=== PATIENT | female | born 1960 | race African-American/Black ===

== ENCOUNTER 2023-08-19 12:31 | Outpatient (CLI) | payer MEDICAID ==
[~2023-08-19 12:31] MED LIST: MULT-1085 PO
[2023-09-01] MEDS ORDERED: SIMV-45 PO (13:58)
[2023-09-01] MEDS ORDERED: CELE-148 PO (13:58)
[2023-09-01] MEDS ORDERED: HYDR-3973 PO (13:58)
[2023-09-01] MEDS ORDERED: DOXE25CA3 PO (13:58)
[2023-09-01] MEDS ORDERED: DOXE50CA4 PO (13:58)
[2023-09-01] MEDS ORDERED: POTA-206 PO (13:58)
[2023-09-01] MEDS ORDERED: NAPR-56 PO (13:58)
[2023-09-01] MEDS ORDERED: LISI10TA27 PO (13:58)
== END 2023-08-19 23:59 | disposition home or self-care (01) ==
LOC: RAD 12:31
PROVIDERS: ATTEND Orthopaedic Surgery
DX: S52.501D Unspecified fracture of the lower end of right radius, subsequent encounter for closed fracture with routine healing (principal); X58.XXXD Exposure to other specified factors, subsequent encounter
CPT/HCPCS: 73110

== ENCOUNTER 2023-09-02 05:33 | Day surgery (SDC) | payer MEDICAID ==
[2023-09-01 13:46] LABS: ALKALINE PHOSPHATASE 140 IU/L (46-116); BLOOD UREA NITROGEN 12 MG/DL (7-18); BUN/CREATININE RATIO 14.1 (10.0-20.0); CALCIUM 10.3 MG/DL (8.5-10.1); CHLORIDE 108 MMOL/L (99-107); CREATININE 0.85 MG/DL (0.40-0.90); PRE OP ALT 12 U/L (30-65); PRE OP ANION GAP 11 (8-16); PRE OP AST 13 U/L (10-37); PRE OP BILIRUB, TOTAL 0.4 MG/DL (0.0-1.0); PRE OP GLUCOSE 79 MG/DL (70-104); PRE OP SODIUM 143 MMOL/L (135-145); TOTAL CARBON DIOXIDE 24.2 MMOL/L (24-32); TOTAL PROTEIN 8.2 G/DL (6.4-8.2); eGFR 82 ML/MIN
[2023-09-01 13:49] LABS: BASOPHILS % (AUTO) 0.7 % (0-1); EOSINOPHILS # (AUTO) 0.2 X10'3 (0-0.9); EOSINOPHILS % (AUTO) 3.1 % (0-6); LYMPHOCYTES # (AUTO) 2.3 X10'3 (1.1-4.8); LYMPHOCYTES % (AUTO) 41.9 % (21-51); MEAN CORPUSCULAR HEMOGLOBIN 27.1 PG (27.0-31.0); MEAN CORPUSCULAR HGB CONC 31.8 g/dL (33.0-36.5); MEAN CORPUSCULAR VOLUME 85.3 FL (78-98); MONOCYTES # (AUTO) 0.5 X10'3 (0-0.9); MONOCYTES % (AUTO) 8.4 % (2-12); NEUTROPHILS # (AUTO) 2.5 X10'3 (1.8-7.7); NEUTROPHILS % (AUTO) 45.9 % (42-75); PRE OP HEMATOCRIT 42.3 % (35.0-45.0); PRE OP HEMOGLOBIN 13.4 g/dL (12.0-16.0); PRE OP PLATELET COUNT 233 X10'3 (140-440); PRE OP WHITE BLOOD COUNT 5.4 10'3 (4.8-10.8); RED BLOOD COUNT 4.95 X10'6 (4.20-5.60); RED CELL DISTRIBUTION WIDTH 16.4 % (11.5-14.5)
[~2023-09-02] VITALS: Ht 180.3 cm; Wt 123.0 kg
[2023-09-02 05:30] VITALS: BP 160/84; PULSE 83; RESP 16; TEMP 97.2; O2SAT 97
[~2023-09-02 05:33] MED LIST changes: +CELE-148 PO; +DOXE25CA3 PO; +DOXE50CA4 PO; +HYDR-3973 PO; +LISI10TA27 PO; -MULT-1085 PO; +NAPR-56 PO; +POTA-206 PO; +SIMV-45 PO
[2023-09-02] MEDS: famotidine 20mg tablet PO ONE (06:07)
[2023-09-02] MEDS: ringers solution, lacted 1,000 ML IV SCH (06:07)
[2023-09-02] MEDS: cefazolin 2gm/D5W 100mL 100 ML IV ONE (06:08)
[2023-09-02] MEDS ORDERED: vancomycin 1,000mg inj ONE (06:59)
[2023-09-02] MEDS ORDERED: bacitracin 15gm ointment TP ONE (06:59)
[2023-09-02] MEDS ORDERED: BUPIVAcaine/PF 2.5mg/ml (0.25%) 10ml vial ONE (06:59)
[2023-09-02] MEDS ORDERED: cloNIDine hcl/PF 100mcg/ml inj ONE (07:29)
[2023-09-02] MEDS ORDERED: midazolam 1 mg/ML 2ml injection ONE (07:33)
[2023-09-02] MEDS ORDERED: fentaNYL/PF 50MCG/1 ML 2ML syringe ONE (07:33)
[2023-09-02] MEDS ORDERED: sevoflurane 250ml liquid IH ONE (07:45)
[2023-09-02] MEDS ORDERED: morphine 2 MG/ML inj. syringe IV PRN (07:50)
[2023-09-02] MEDS ORDERED: ondansetron/PF 4mg/2ml inj IV PRN (07:50)
[2023-09-02] MEDS ORDERED: ringers solution, lacted 1,000 ML IV SCH (07:50)
[2023-09-02] MEDS ORDERED: acetaminophen 1,000mg/100ml IV 100 ML IV ONE (07:50)
[2023-09-02] MEDS ORDERED: morphine 4 MG/ML inj SYRINge IV PRN (07:50)
[2023-09-02] MEDS ORDERED: hydrALAZINE 20mg/ml inj. IV PRN (07:50)
[2023-09-02] MEDS ORDERED: meperidine/PF 25mg/ml syringe IV PRN ×3 (07:50)
[2023-09-02] MEDS ORDERED: labetalol 20mg/4ml (5mg/ml) syringe IV PRN (07:50)
[2023-09-02] MEDS ORDERED: proCHLORperazine 10 MG/2 ml inj IV PRN (07:50)
[2023-09-02] MEDS ORDERED: ROPIVAcaine 0.5% (5mg/ml) 30ml vial ONE (08:43)
[2023-09-02] MEDS ORDERED: propofol inj 20 ML IV ONE (08:43)
[2023-09-02] MEDS ORDERED: LIDOcaine 2% (20mg/ml) 5ml vial ONE (08:43)
[2023-09-02] MEDS ORDERED: ondansetron/PF 4mg/2ml inj ONE (08:44)
[2023-09-02] MEDS ORDERED: dexamethasone sod phosphate 4mg/ml inj. ONE (08:44)
[2023-09-02] MEDS: vancomycin 1,000mg inj IVT ONE (10:25)
[2023-09-02] MEDS ORDERED: ceFAZolin 1000mg inj ONE (10:37)
[2023-09-02 11:00] VITALS: BP 148/91; PULSE 80; RESP 14; O2SAT 99
[2023-09-02 11:10] VITALS: BP 141/91; PULSE 82; RESP 21; O2SAT 96
[2023-09-02 11:20] VITALS: BP 142/86; PULSE 87; RESP 24; O2SAT 94
[2023-09-02 11:30] VITALS: BP 151/73; PULSE 84; RESP 18; O2SAT 96
== END 2023-09-02 11:40 | disposition home or self-care (01) ==
LOC: PAS 05:33
PROVIDERS: ATTEND Orthopaedic Surgery
DX: S52.571A Other intraarticular fracture of lower end of right radius, initial encounter for closed fracture (principal); G89.18 Other acute postprocedural pain; I11.9 Hypertensive heart disease without heart failure; E78.5 Hyperlipidemia, unspecified; E66.9 Obesity, unspecified; Z87.891 Personal history of nicotine dependence; Z79.891 Long term (current) use of opiate analgesic; Z79.899 Other long term (current) drug therapy; Z98.890 Other specified postprocedural states; Z68.37 Body mass index [BMI] 37.0-37.9, adult; Z88.5 Allergy status to narcotic agent; X58.XXXA Exposure to other specified factors, initial encounter; Y93.89 Activity, other specified; Y92.89 Other specified places as the place of occurrence of the external cause; Y99.8 Other external cause status
CPT/HCPCS: 25608; 36415; 64417; 80053; 82948; 85025; 93005; A6222; C1713; J0690; J0735; J1100; J2250; J2405; J2704; J2795; J3010; J3370; J3490; J7030; J7120; Z7506; Z7508; Z7512; A4215; A4565; A4618; A6258; A6449; A7000

== ENCOUNTER 2024-09-26 06:34 | Inpatient (IN) | payer MEDICAID ==
[2024-09-19 10:49] LABS: BASOPHILS % (AUTO) 1.1 % (0-1); EOSINOPHILS # (AUTO) 0.1 X10'3 (0-0.9); EOSINOPHILS % (AUTO) 2.1 % (0-6); LYMPHOCYTES # (AUTO) 1.5 X10'3 (1.1-4.8); LYMPHOCYTES % (AUTO) 36.4 % (21-51); MEAN CORPUSCULAR HEMOGLOBIN 27.3 PG (27.0-31.0); MEAN CORPUSCULAR HGB CONC 32.6 g/dL (33.0-36.5); MEAN CORPUSCULAR VOLUME 83.9 FL (78-98); MONOCYTES # (AUTO) 0.3 X10'3 (0-0.9); MONOCYTES % (AUTO) 6.9 % (2-12); NEUTROPHILS # (AUTO) 2.1 X10'3 (1.8-7.7); NEUTROPHILS % (AUTO) 53.5 % (42-75); PRE OP HEMATOCRIT 41.1 % (35.0-45.0); PRE OP HEMOGLOBIN 13.4 g/dL (12.0-16.0); PRE OP PLATELET COUNT 215 X10'3 (140-440); RED CELL DISTRIBUTION WIDTH 16.3 % (11.5-14.5)
[2024-09-19 11:00] LABS: ALBUMIN 3.8 G/DL (3.4-5.0); ALKALINE PHOSPHATASE 143 IU/L (46-116); BLOOD UREA NITROGEN 10 MG/DL (7-18); BUN/CREATININE RATIO 13.3 (10.0-20.0); CHLORIDE 107 MMOL/L (99-107); CREATININE 0.75 MG/DL (0.40-0.90); PRE OP ALT 23 U/L (30-65); PRE OP ANION GAP 8 (8-16); PRE OP AST 14 U/L (10-37); PRE OP BILIRUB, TOTAL 0.3 MG/DL (0.0-1.0); PRE OP GLUCOSE 85 MG/DL (70-104); PRE OP POTASSIUM 3.9 MMOL/L (3.4-5.1); PRE OP SODIUM 143 MMOL/L (135-145); TOTAL CARBON DIOXIDE 28.4 MMOL/L (24-32); eGFR > 90 ML/MIN
[2024-09-19 11:03] LABS: TOTAL PROTEIN 7.5 G/DL (6.4-8.2)
[~2024-09-26] VITALS: Ht 175.3 cm; Wt 115.8 kg
[2024-09-26] VITALS (18 sets, daily range): BP systolic 77–169; BP diastolic 45–98; PULSE 59–90; RESP 12–18; TEMP 97–98.2; O2SAT 94–100
[2024-09-26] MEDS: tranexamic acid 1gm/0.7% sal. 100 ML IV ONE (05:30)
[2024-09-26] MEDS: ceFAZolin 2gm/dext,iso 50mL 50 ML IV ONE (06:12)
[~2024-09-26 06:34] MED LIST changes: +ACET-2615 PO; +BACL20TA4 PO; -DOXE25CA3 PO; +DOXE25CA4 PO; -DOXE50CA4 PO; +GABA-1405 PO; -HYDR-3973 PO; +IBUP-1986 PO; -NAPR-56 PO; +OXYB5TAB21 PO; +SEMA0.253 SQ; +vancomycin 1,000mg inj ONE
[2024-09-26] MEDS: ringers solution, lacted 1,000 ML IV SCH ×2 (07:03→09:30)
[2024-09-26] MEDS: famotidine 20mg tablet PO ONE (07:04)
[2024-09-26] MEDS: VANCOMYCIN/H2O 1.5g/300mL PB 300 ML IV ONE (07:06)
[2024-09-26] MEDS ORDERED: tetracaine 1% (10mg/ml) pres. free inj. ONE (08:12)
[2024-09-26] MEDS ORDERED: fentaNYL/PF 50MCG/1 ML 2ML syringe ONE ×2 (08:16→11:19)
[2024-09-26] MEDS ORDERED: MIDAZolam 1mg/ml 10ml vial ONE (08:16)
[2024-09-26] MEDS ORDERED: LIDOcaine 2% (20mg/ml) 5ml vial ONE (09:00)
[2024-09-26] MEDS ORDERED: LIDOcaine 1%/PF 5ML 10 MG/ML VIAL ONE (09:00)
[2024-09-26] MEDS ORDERED: fentaNYL /PF 50mcg/ml 5ml ampule ONE (09:00)
[2024-09-26] MEDS ORDERED: acetaminophen 1,000mg/100ml IV 100 ML IV ONE (09:03)
[2024-09-26] MEDS ORDERED: sevoflurane 250ml liquid IH ONE (09:19)
[2024-09-26] MEDS ORDERED: dexamethasone sod phosphate 4mg/ml inj. ONE (09:21)
[2024-09-26] MEDS ORDERED: ondansetron/PF 4mg/2ml inj ONE (09:21)
[2024-09-26] MEDS ORDERED: labetalol 20mg/4ml (5mg/ml) syringe IV PRN (09:30)
[2024-09-26] MEDS ORDERED: ondansetron/PF 4mg/2ml inj IV PRN ×2 (09:30→12:20)
[2024-09-26] MEDS ORDERED: fentaNYL/PF 50MCG/1 ML 2ML syringe IV PRN (09:30)
[2024-09-26] MEDS ORDERED: hydrALAZINE 20mg/ml inj. IV PRN (09:30)
[2024-09-26] MEDS ORDERED: labetalol 20mg/4ml (5mg/ml) syringe IV ONE (09:43)
--- NOTE | 2024-09-26 09:43 | ANESTHESIA RECORDS ---
Nerve Block Providers to CC CC: RODOLFO BAILON MD ~ Diagnosis: Nerve Block requested by: RODOLFO BAILON MD Neuraxial/Peripheral Nerve Block requested for Post-operative analgesia by Physician above DIAGNOSIS: Post-operative pain. (Body Area) Shoulder: [ ] Arm: [ ] Hand: [ ] Hip: [ ] Knee: [ Right ] Ankle: [ ] Foot: [ ] Leg: [ ] Abdomen: [ ] Other: [ ] Post-operative pain expected to be/is inadequately managed by oral or IV medicines. Regional anesthetic expected to facilitate rehabilitation and/or discharge from facility. Other:[ _] Procedure Performed: Femoral / Saphenous: Right Other: Right IPACK Block Time out Done?: Yes Time of Time out: 08:35 Procedure Details: PROCEDURE DETAILS: Risks, benefits and alternatives explained Informed consent obtained, and patient wishes to proceed Conscious sedation with indicated monitors Patient positioned, pertinent anatomy defined, sterile technique used Needle used: [ ] 3 1/8 inch Stimuplex Ultra 22ga [ ] 4 inch Stimuplex Ultra 20ga [ ] 6 inch Stimuplex Ultra 20ga [ X] 6 inch, Quikbloc over the needle catheter set 20ga [ ] 4 inch Quikbloc over the needle catheter set 20ga [ ]Other: [ ] Loss of twitch @ [ ]mA [ X] Single Injection IPACK [X ] Catheter ADDUCTOR CANAL Ultrasound Guidance Used: [X ] Yes [ ] No Attempts:[_1,1 ] Medicines injected: [ ]Clonidine Amt:[ ] [ X ]Dexamethasone Amt:[ ] [ X ]Ropivacaine Amt:[_0.5% 45 C.C ] [ ]Bupivacaine Amt:[ ] [ ]Lidocaine Amt:[ ] [ ]Exparel 1.33%:[ ] [ ]Epinephrine Amt[ ] [ ]Other: [ ] Intermittent aspiration during local anesthetic administration No symptoms of intraneural or intravenous injection Patient tolerated procedure well Comments RIGHT ADDUCTOR CANAL BLOCK CATHETER: Right mid medila thigh is examined with Ultrasound and Adductor canal and vessels in the canal are identified. Catheter over needle is paced in the adductor canal. After negative aspirations, 25 c.c local mix is injected.spread is noted. Needle is removed,catheter is secured. sterile dressings applied. Ultrasound image is captured,documented. On q pump is ordered for postop pain management. Right IPACK Block: Right posterior knee is examined with Ultrasound and Popliteal vessels, Posterior knee capsule is identified. Needle is placed between these structures and 15 c.c of local mix is injected,spread is noted. Ultrasound image is captured and documented. ELLEN LEVY MD September 26, 2024 09:43
[2024-09-26] MEDS ORDERED: rocuronium 10mg/ml inj IV ONE (10:29)
[2024-09-26] MEDS ORDERED: ROPIVAcaine 0.5% (5mg/ml) 30ml vial ONE ×2 (11:22)
[2024-09-26] MEDS ORDERED: acetaminophen 325mg tablet PO PRN (12:20)
[2024-09-26] MEDS ORDERED: magnesium hydroxide 30ml (MOM) UD suspension PO PRN (12:20)
[2024-09-26] MEDS ORDERED: PCA WASTE DOCUMENTATION 1 MG ML MC SCH (12:20)
[2024-09-26] MEDS ORDERED: diphenhydrAMINE 25mg capsule PO PRN ×2 (12:20)
[2024-09-26] MEDS ORDERED: naloxone 0.4 mg/ml inj IV PRN (12:20)
[2024-09-26] MEDS ORDERED: HYDROmorphone 1 mg/ml syringe IV PRN (12:20)
[2024-09-26] MEDS ORDERED: bisacodyl 10mg suppository rectal RC PRN (12:20)
--- NOTE | 2024-09-26 12:34 | OPERATIVE REPORT ---
Operative Report Providers to ~ Date of Procedure: September 26, 2024 Pre-Operative Diagnosis: Severe degenerative joint right knee Post-Operative Diagnosis SAME as PRE-Op Procedure Performed Right total knee arthroplasty cemented Surgeon: Rodolfo Epstein MD Advisory Services Associate Osman Sanches MD Anesthesiologist: Wilton Valera Type of Anesthesia: General, Other (Adductor canal block with on Q pump and an IPAP block right knee) Findings: Severe grade 4 degenerative changes tricompartmental right knee Complications None Prosthetics\Implants used: Darren persona knee system. Size F tibial cemented implant tibia with a 30 mm tapered stem extension. Size 11 standard femur cemented. Size 35 mm patella cemented. Medial congruent 11 mm polyethylene Estimated Blood Loss: 250 mL Specimen Removed: Degenerative bone, meniscal, and cruciate tissue Description of Procedure: This patient was taken to the operating room after I had obtained informed consent signed in her right knee she was then given prophylactic antibiotics per protocol. I answered all her questions prior to the beginning of the case. Once in the operating room she was given attempted spinal anesthetic patient was unable to be completed and then a general anesthetic on the OR table in the supine position. Her left leg was placed with a SCD device her right leg was placed in a well- padded upper thigh tourniquet which was not used during this case. The right leg was prepped and draped in usual sterile orthopaedic fashion a surgical time- out was taken per protocol and the case was begun. Ioban skin dressing was used. Anterior incision was made measuring approximately 10 in in the medial parapatellar approach was accomplished using strict technique for hemostasis. The patella was inverted and found to have extensive grade 4 degenerative changes. Osteotomy of the patella was accomplished with a freehand technique this sized to a 35 mm it was drilled in prep for implantation and protected with a skin plate. This was subluxed laterally to expose the distal femur. The knee was brought into flexion to expose the femoral condyles which had grade 4 changes. Patient had a moderate valgus malalignment. Medullary canal was established with a drill hole and then a medullary guide dipak was used a 6 degree valgus cut was made removing both medial and lateral femoral condyles. Proximal tibia was now exposed by placed in the knee and a maximal flexion releasing the cruciate ligament and doing a meniscectomy. Medial collateral ligament was released distally due to the varus deformity of her knee. Medullary canal was established with the tibia and a guide dipak was placed down the medullary canal and used for alignment purposes approximately 10-12 mm tibial cut osteotomy was now made protecting the neurovascular structures posteriorly with retractors. Trial reduction gave us full extension with a 11 mm insert tension with a gap balance her was equal with positioning of the femor al component 4 mm posteriorly this required sizing her implant from a size 10 to a size 11 which accommodated quite nicely. Trial liner was used a size 11 gave us excellent stability with full extension instability and flexion as well. The patella trial was placed in the knee and was tracked centrally throughout the range of motion. The trial components were removed bony cut surfaces were irrigated and dried fixation of the tibial component with cement was accomplished 1st allowing to a cure prior to fixation of the femoral and patellar components. Another trial reduction with the liner 11 mm was satisfactory and quite stable so the definitive polyethylene liner 11 mm medial congruent was placed in the knee is stable. Copious antibiotic irrigation with pulsatile normal saline with Ancef and it was used with a proximally 4 L and 1 L of antiseptic solution was used Aricept. Hemostasis was excellent. Medial parapatellar approach was closed with the knee in flexion with interrupted sutures of 2. FiberWire. Subcutaneous closure was accomplished with 2-0 Vicryl and the skin was closed with skin yissel. Sterile dressings were applied including active code and island dressing. The anesthesiologist performed a adductor canal block and an IPAP block after this was completed. Good distal pulses capillary refill maintained throughout the case. There were no apparent perioperative complications patient was extubated taken to the recovery room in stable condition Counts repoted as correct: Yes RODOLFO EPSTEIN MD September 26, 2024 12:34
[2024-09-26] MEDS: morphine 4 MG/ML inj SYRINge IV PRN (12:59)
[2024-09-26] MEDS: ROPIVAcaine 0.2% (10 MG/5 ML) BOLUS INJECTION ADDCANAL PRN (13:00)
[2024-09-26] MEDS: gabapentin 300mg capsule PO SCH (13:00)
[2024-09-26] MEDS: ROPIVAcaine 0.2%/PF PUMP/bolus 545 ML ADDCANAL SCH (13:02)
[2024-09-26] MEDS: morphine 2 MG/ML inj. syringe IV PRN (13:09)
[2024-09-26] MEDS: fentaNYL/PF 50MCG/1 ML 2ML syringe IV PRN (13:16)
[2024-09-26] MEDS: acetaminophen 325mg tablet PO SCH (14:00)
--- NOTE | 2024-09-26 14:35 | RADIOLOGY REPORT ---
CLINICAL INDICATION: Postop RT. KNEE TECHNIQUE: 2 radiographic views of the right knee were obtained. Comparison: None FINDINGS/IMPRESSION: Postsurgical changes from right knee arthroplasty.
[2024-09-26] MEDS: oxyCODONE IR 5mg (immed. release) tablet PO PRN (17:18)
[2024-09-26] MEDS: tranexamic acid inj. 1,150 MG in normal saline 100ml IV soln 88.5 ML IV ONE (19:40)
[2024-09-26] MEDS: sennosides 8.6mg tablet PO SCH (19:41)
[2024-09-26] MEDS: ceFAZolin/D5W- 1GM premix 50 ML IV SCH (20:33)
[2024-09-26] MEDS: potassium Cl 20mEq in NS 1,000 ML IV SCH (21:18)
[2024-09-26] MEDS: vancomycin/NS 1 GM ADD-VANTAGE 250 ML IV SCH (21:21)
--- NOTE | 2024-09-27 00:02 | CONSULTATION REPORT - RESIDENT ---
Consult Providers to CC Resident Creating Document: ANDREW LLAMAS RES History of Present Illness Reason for Admit\Complaint: RIGHT TKA History of Present Illness 64-year-old female past medical history of hypertension, osteoarthritis, hypokalemia, chronic back pain has been admitted in the hospital after she underwent right total knee arthroplasty today by Dr. Epstein for severe degenerative joint disease of the right knee. The patient successfully underwent the right total knee arthroplasty without any complications. Reported that she did not take her blood pressure medications prior to the surgery today. She also reports having history of chronic pain in her back and peripheral neuropathy but states that her pain is currently well-controlled with the pain medication she has been receiving. She is resting comfortably in her bed and denies any headaches, nausea or vomiting, chest pain, palpitations, abdominal pain, diarrhea or constipation. Allergies: Coded Allergies: codeine (Unverified Allergy, Intermediate, NAUSEA/VOMITING, SWELLING., 10/09/13) Home Medications Home Medications Active Reported Doxepin HCl 25 Mg Capsule 125 Mg PO HS 30 Days Tylenol Extra Strength (Acetaminophen) 500 Mg Tablet 2 Tab PO Q6H PRN PRN Ibuprofen 800 Mg Tablet 1 Tab PO Q8H PRN Gabapentin 600 Mg Tablet 900 Mg PO HS Gabapentin 600 Mg Tablet 1 Tab PO BID@0800,1200 Baclofen 20 Mg Tablet 1 Tab PO BID PRN Oxybutynin Chloride 5 Mg Tablet 2 Tab PO HS Wegovy (Semaglutide) 0.25 Mg/0.5 Ml Pen.injctr 1.7 Mg SQ Q7D Simvastatin 40 Mg Tablet 1 Tab PO HS Lisinopril 10 Mg Tablet 2 Tab PO DAILY K-Dur (Potassium Chloride) 10 Meq Tab.prt.sr 1 Tab PO DAILY Celecoxib 100 Mg Capsule 1 Cap PO BID PRN Past Medical History Past Medical History Hypertension, osteoarthritis, hypokalemia, chronic pain syndrome, peripheral neuropathy Past Surgical History Surgical History Comment Back surgery he is Right wrist open reduction internal fixation for wrist fracture Past Social History Social History Comment Lives at home with her . Quit smoking monitor FiO0. Drinks occasional wine. Denies recreational drug use. ROS ROS As stated above in the HPI, otherwise all systems are reviewed and negative. Exam Vitals: Vital Signs Date Time Temp Pulse Resp B/P (MAP) Pulse Ox O2 Delivery O2 Flow Rate FiO2 09/26/24 21:45 16 09/26/24 16:45 89 161/86 (111) 98 Room Air 09/26/24 14:00 97.0 2.0 General: General: Awake and Alert, no acute distress. HEENT: Conjunctiva pink, Sclera clear, Mucus Membranes moist. Neck: Supple without masses and tenderness. Resp: Unlabored. Lungs clear to auscultation bilaterally. Heart: Regular Rate and rhythm, normal S1 and S2 without murmur, rub or gallop. Abdomen: Soft and non tender no organomegaly Extremities: Right knee covered with a surgical dressing. The surgical dressing is covered in blood. No the active bleeding at the moment. Bilateral SCDs present. Skin: Warm and Dry. Neurology: No focal motor or sensory deficits. Additional Plan Severe degenerative joint disease of the right knee Status post right total knee arthroplasty by Dr. Vargas Epstein The patient underwent surgery today. There were no complications and the patient tolerated the surgery well. Perioperative antibiotic coverage with IV cefazolin and vancomycin. Pain management with the adductor canal pain pump, as needed Dilaudid 1 mg IV for severe pain and 0.5 mg IV for moderate pain q.4 hours. Continue LR for hydration and maintenance. Physical therapy evaluation and treatment to be done after clearance from Dr. Epstein. The patient might require discharge to a post acute care facility for further care and recovery. When discussed this with the patient she reported that she has a good support at home and her can take care of her. Hypertension Restarted the patient's home medication lisinopril 20 mg p.o. daily. We will continue to monitor the vitals closely. Hyperlipidemia Restarted simvastatin 40 mg p.o. HS. Follow up with the lipid panel. Chronic back pain Peripheral neuropathy Restarted home gabapentin 600 mg p.o. b.i.d., doxepin 125 mg p.o. HS. Currently on adductor canal pain pump, as needed Dilaudid and oxycodone. Deescalate pain medication. Obesity On Wegovy for weight loss. Follow up with the A1c and lipid panel. CODE STATUS: Full code DVT prophylaxis: SCDs, Lovenox from tomorrow GI prophylaxis: Famotidine p.o. Diet: Carb controlled diet Andrew Llamas MD Internal Medicine Resident, PGY-2 Date of Service: September 26, 2024 Billing Provider: FARRUKH RAMIREZ MD,ANDREW ARTEAGA, RES September 27, 2024 00:02
[2024-09-27] MEDS: lisinopril 10 MG tablet PO ONE (00:07)
[2024-09-27 02:00] VITALS: BP 125/73; PULSE 91; RESP 16; TEMP 98.1; O2SAT 96
[2024-09-27 06:00] VITALS: BP 134/76; PULSE 87; RESP 14; TEMP 97.9; O2SAT 99
[2024-09-27 06:49] LABS: ALANINE AMINOTRANSFERASE 19 U/L (12-78); ALBUMIN/GLOBULIN RATIO 0.9 (1.1-1.5); ALKALINE PHOSPHATASE 100 IU/L (46-116); ANION GAP 8 (8-16); ASPARTATE AMINO TRANSFERASE 18 U/L (10-37); BILIRUBIN,TOTAL 0.5 MG/DL (0.1-1.0); BLOOD UREA NITROGEN 9 MG/DL (7-18); BUN/CREATININE RATIO 10.1 (10.0-20.0); CALCIUM 9.3 MG/DL (8.5-10.1); CHLORIDE 106 MMOL/L (99-107); CHOLESTEROL 134 MG/DL (0-200); CREATININE 0.89 MG/DL (0.40-0.90); GLUCOSE 96 MG/DL (70-104); HDL CHOLESTEROL 67 MG/DL (35-60); LDL CHOLESTEROL 50 MG/DL (50-100); POTASSIUM 3.9 MMOL/L (3.5-5.1); SODIUM 139 MMOL/L (135-145); TOTAL CARBON DIOXIDE 25.4 MMOL/L (24-32); TOTAL PROTEIN 6.4 G/DL (6.4-8.2); TRIGLYCERIDES 60 MG/DL (20-135); eCRCL 68 ML/MIN; eGFR 78 ML/MIN
[2024-09-27 07:26] LABS: HEMOGLOBIN A1C 5.3 % (4.5-6.2)
[2024-09-27 09:00] LABS: BASOPHILS % (AUTO) 0.2 % (0-1); EOSINOPHILS % (AUTO) 0 % (0-6); HEMATOCRIT 31.9 % (35.0-45.0); HEMOGLOBIN 10.3 g/dl (12.0-16.0); LYMPHOCYTES # (AUTO) 1.5 X10'3 (1.1-4.8); LYMPHOCYTES % (AUTO) 19.6 % (21-51); MEAN CORPUSCULAR HEMOGLOBIN 27.2 PG (27.0-31.0); MEAN CORPUSCULAR HGB CONC 32.4 g/dL (33.0-36.5); MEAN PLATELET VOLUME 7.6 FL (7.4-10.4); MONOCYTES # (AUTO) 0.8 X10'3 (0-0.9); MONOCYTES % (AUTO) 10.9 % (2-12); NEUTROPHILS # (AUTO) 5.4 X10'3 (1.8-7.7); NEUTROPHILS % (AUTO) 69.3 % (42-75); PLATELET COUNT 185 X10'3 (140-440); RED BLOOD COUNT 3.79 X10'6 (4.20-5.60); RED CELL DISTRIBUTION WIDTH 15.8 % (11.5-14.5); WHITE BLOOD COUNT 7.7 X10'3 (4.5-11.0)
[2024-09-27 10:00] VITALS: BP 110/51; PULSE 97; RESP 17; TEMP 98.2; O2SAT 97
[2024-09-27] MEDS: enoxaparin 40mg/0.4ml syringe SQ SCH (10:09)
[2024-09-27] MEDS: lisinopril 10 MG tablet PO SCH (10:10)
[2024-09-27] MEDS: gabapentin 300mg capsule PO SCH (10:11)
[2024-09-27] MEDS: potassium chloride 10mEq ER tablet PO SCH (10:11)
[2024-09-27] MEDS: oxyCODONE IR 5mg (immed. release) tablet PO PRN (14:21)
[2024-09-27] MEDS: HYDROmorphone inj. 0.5 MG/0.5 ML DISP.SYRIN IV PRN (17:22)
--- NOTE | 2024-09-27 17:50 | PROGRESS NOTE- Residence ---
Progress Note - Resident Providers to CC Resident Creating Document: DYAN CASTAÑEDA RES ~ Antibiotic Timeout Antibiotic Ordered?: Yes Subjective Seen and examined the patient was bedside. Objective Vital Signs Date Time Temp Pulse Resp B/P (MAP) Pulse Ox O2 Delivery O2 Flow Rate FiO2 09/27/24 17:22 16 09/27/24 10:10 97 09/27/24 10:00 98.2 110/51 (70) 97 Room Air 09/26/24 14:00 2.0 Result Diagram: 09/27/24 0604 09/27/24 0604 Advance Care Planning Advanced Care plannin - 30 Minutes Plan Plan Severe degenerative joint disease of the right knee Status post right total knee arthroplasty by Dr. Vargas Epstein The patient underwent surgery today. There were no complications and the patient tolerated the surgery well. Perioperative antibiotic coverage with IV cefazolin and vancomycin. Pain management with the adductor canal pain pump, as needed Dilaudid 1 mg IV for severe pain and 0.5 mg IV for moderate pain q.4 hours. Continue LR for hydration and maintenance. Physical therapy evaluation and treatment to be done after clearance from Dr. Epstein. The patient might require discharge to a post acute care facility for further care and recovery. When discussed this with the patient she reported that she has a good support at home and her can take care of her. 09/27/2024: -postop course is uneventful till now and she is not complaining about the pain. Maintaining on the lactated ringer at the rate of 20 mL/hour. Continuing ropivacaine pain pump per Dr. Epstein. Pain management with oxycodone, hydromorphone. Hypertension Restarted the patient's home medication lisinopril 20 mg p.o. daily. We will continue to monitor the vitals closely. 09/27/2024: -blood pressure is controlled in 130s. -continue lisinopril 20 mg p.o. daily and continue to monitor blood pressure with a target of less than 130 Hyperlipidemia Restarted simvastatin 40 mg p.o. HS. Follow up with the lipid panel. 09/27/2024: LDL cholesterol is 50 and continue simvastatin 40 mg Chronic back pain Peripheral neuropathy Restarted home gabapentin 600 mg p.o. b.i.d., doxepin 125 mg p.o. HS. Currently on adductor canal pain pump, as needed Dilaudid and oxycodone. Deescalate pain medication. Obesity On Wegovy for weight loss. Follow up with the A1c and lipid panel. 09/27/2024: A1c is 5.3. LDL is 50. Patient needs to follow up with outpatient PCP for obesity CODE STATUS: Full code DVT prophylaxis: SCDs, Lovenox 40 subQ GI prophylaxis: Famotidine p.o. Diet: 75 g Carb controlled diet Dyan Castañeda MD Internal Medicine Resident, PGY-1 Date of Service: September 27, 2024 Billing Provider: LEROY PFEIFFER MD Common Visit Codes: [id number] INP/OBS CARE(MOD) DYAN CASTAÑEDA, RES September 27, 2024 17:50 LEROY PFEIFFER MD September 27, 2024 18:37
[2024-09-27 18:00] VITALS: BP 124/68; PULSE 101; RESP 14; TEMP 98; O2SAT 98
[2024-09-27 20:00] VITALS: RESP 14; O2SAT 98
[2024-09-27] MEDS: celeCOXIB 100mg capsule PO SCH (20:40)
[2024-09-27] MEDS: oxybutynin 5mg tablet PO SCH (20:40)
[2024-09-27] MEDS: simvastatin 20mg tablet PO SCH (20:41)
[2024-09-27] MEDS: doxepin 25mg capsule PO SCH (20:44)
[2024-09-27 22:00] VITALS: BP 133/66; PULSE 103; RESP 16; TEMP 98.8; O2SAT 98
[2024-09-28 06:00] VITALS: BP 90/47; PULSE 101; RESP 16; TEMP 98.8; O2SAT 96
[2024-09-28 06:45] LABS: BASOPHILS % (AUTO) 0.5 % (0-1); EOSINOPHILS # (AUTO) 0.1 X10'3 (0-0.9); EOSINOPHILS % (AUTO) 0.6 % (0-6); HEMATOCRIT 26.8 % (35.0-45.0); HEMOGLOBIN 8.7 g/dl (12.0-16.0); LYMPHOCYTES # (AUTO) 2.3 X10'3 (1.1-4.8); LYMPHOCYTES % (AUTO) 24.7 % (21-51); MEAN CORPUSCULAR HEMOGLOBIN 27.4 PG (27.0-31.0); MEAN CORPUSCULAR HGB CONC 32.5 g/dL (33.0-36.5); MEAN CORPUSCULAR VOLUME 84.3 FL (78-98); MEAN PLATELET VOLUME 7.3 FL (7.4-10.4); MONOCYTES % (AUTO) 10.4 % (2-12); NEUTROPHILS % (AUTO) 63.8 % (42-75); PLATELET COUNT 155 X10'3 (140-440); RED BLOOD COUNT 3.18 X10'6 (4.20-5.60); RED CELL DISTRIBUTION WIDTH 16.1 % (11.5-14.5); WHITE BLOOD COUNT 9.4 X10'3 (4.5-11.0)
[2024-09-28 07:07] LABS: ALANINE AMINOTRANSFERASE 17 U/L (12-78); ALBUMIN 2.6 G/DL (3.4-5.0); ALBUMIN/GLOBULIN RATIO 0.8 (1.1-1.5); ALKALINE PHOSPHATASE 88 IU/L (46-116); ANION GAP 5 (8-16); ASPARTATE AMINO TRANSFERASE 12 U/L (10-37); BILIRUBIN,TOTAL 0.4 MG/DL (0.1-1.0); BLOOD UREA NITROGEN 14 MG/DL (7-18); BUN/CREATININE RATIO 15.1 (10.0-20.0); CALCIUM 9.1 MG/DL (8.5-10.1); CHLORIDE 111 MMOL/L (99-107); CREATININE 0.93 MG/DL (0.40-0.90); GLUCOSE 88 MG/DL (70-104); POTASSIUM 4.2 MMOL/L (3.5-5.1); SODIUM 141 MMOL/L (135-145); TOTAL CARBON DIOXIDE 24.8 MMOL/L (24-32); TOTAL PROTEIN 5.7 G/DL (6.4-8.2); eCRCL 65 ML/MIN; eGFR 74 ML/MIN
[2024-09-28 10:00] VITALS: BP 104/56; PULSE 90; RESP 16; TEMP 98; O2SAT 95
[2024-09-28] MEDS ORDERED: LISI10TA27 PO (11:51)
[2024-09-28] MEDS ORDERED: HYDR-3973 PO (12:17)
--- NOTE | 2024-09-28 18:16 | DISCHARGE SUMMARY-Residence ---
Discharge Summary Providers to CC Resident Creating Document: DYAN CASTAÑEDA, IRINA ~ Discharge Summary Admission Diagnosis: Severe degenerative joint right knee Hospital Course DATE OF ADMISSION: 09/26/2024 DATE OF DISCHARGE: 09/28/2024 Postop x-ray right knee on 09/26/2024 Comparison: None FINDINGS/IMPRESSION: Postsurgical changes from right knee arthroplasty. Discharge Diagnosis\Comment: Severe degenerative joint disease of right knee Status post right total knee arthroplasty Hypertension Hyperlipidemia Chronic back pain Peripheral neuropathy Obesity Normocytic hypochromic anemia Operations\Procedures: Date of Procedure: September 26, 2024 Pre-Operative Diagnosis: Severe degenerative joint right knee Post-Operative Diagnosis SAME as PRE-Op Procedure Performed Right total knee arthroplasty cemented Surgeon: Rodolfo Bailon MD Account Services Specialist Osman Sanches MD Anesthesiologist: Wilton Valera Type of Anesthesia: General, Other (Adductor canal block with on Q pump and an IPAP block right knee) Findings: Severe grade 4 degenerative changes tricompartmental right knee Complications None Prosthetics\Implants used: Darren persona knee system. Size F tibial cemented implant tibia with a 30 mm tapered stem extension. Size 11 standard femur cemented. Size 35 mm patella cemented. Medial congruent 11 mm polyethylene Estimated Blood Loss: 250 mL Specimen Removed: Degenerative bone, meniscal, and cruciate tissue Description of Procedure: This patient was taken to the operating room after I had obtained informed consent signed in her right knee she was then given prophylactic antibiotics per protocol. I answered all her questions prior to the beginning of the case. Once in the operating room she was given attempted spinal anesthetic patient was unable to be completed and then a general anesthetic on the OR table in the s upine position. Her left leg was placed with a SCD device her right leg was placed in a well- padded upper thigh tourniquet which was not used during this case. The right leg was prepped and draped in usual sterile orthopaedic fashion a surgical time-out was taken per protocol and the case was begun. Ioban skin dressing was used. Anterior incision was made measuring approximat rex 10 in in the medial parapatellar approach was accomplished using strict technique for hemostasis. The patella was inverted and found to have extensive grade 4 degenerative changes. Osteotomy of the patella was accomplished with a freehand technique this sized to a 35 mm it was drilled in prep for implantation and protected with a skin plate. This was subluxed laterally to expose the distal femur. The knee was brought into flexion to expose the femoral condyles which had grade 4 changes. Patient had a moderate valgus malalignment. Medullary canal was established with a drill hole and then a medullary guide dipak was used a 6 degree valgus cut was made removing both medial and lateral femoral condyles. Proximal tibia was now exposed by placed in the knee and a maximal flexion releasing the cruciate ligament and doing a meniscectomy. Medial collateral ligament was released distally due to the varus deformity of her knee. Medullary canal was established with the tibia and a guide dipak was placed down the medullary canal and used for alignment purposes approximately 10-12 mm tibial cut osteotomy was now made protecting the neurovascular structures posteriorly with retractors. Trial reduction gave us full extension with a 11 mm insert tension with a gap balance her was equal with positioning of the femoral component 4 mm posteriorly this required sizing her implant from a size 10 to a size 11 which accommodated quite nicely. Trial liner was used a size 11 gave us excellent stability with full extension instability and flexion as well. The patella trial was placed in the knee and was tracked centrally throughout the range of motion. The trial components were removed bony cut surfaces were irrigated and dried fixation of the tibial component with cement was accomplished 1st allowing to a cure prior to fixation of the femoral and patellar components. Another trial reduction with the liner 11 mm was satisfactory and quite stable so the definitive polyethylene liner 11 mm medial congruent was placed in the knee is stable. Copious antibiotic irrigation with pulsatile normal saline with Ancef and it was used with a proximally 4 L and 1 L of antiseptic solution was used Aricept. Hemostasis was excellent. Medial parapatellar approach was closed with the knee in flexion with interrupted sutures of 2. FiberWire. Subcutaneous closure was accomplished with 2-0 Vicryl and the skin was closed with skin yissel. Sterile dressings were applied including active code and island dressing. The anesthesiologist performed a adductor canal block and an IPAP block after this was completed. Good distal pulses capillary refill maintained throughout the case. There were no apparent perioperative complications patient was extubated taken to the recovery room in stable condition Counts repoted as correct: Yes RODOLFO BAILON MD Consultants: Dr. Bailon Complications: None Condition on DC: Stable New Medications: Hydrocodone Bit/Acetaminophen (Hydrocodone-Apap 10-325 Tablet) 10mg/325mg Tablet 1 TAB PO QID PRN PRN for pain for 5 Days, #20 TAB Lisinopril (Lisinopril) 10 Mg Tablet 10 MG PO DAILY for 30 Days, #30 TAB Continued Medications: Acetaminophen (Tylenol Extra Strength) 500 Mg Tablet 2 TAB PO Q6H PRN PRN for pain or fever Baclofen (Baclofen) 20 Mg Tablet 1 TAB PO BID PRN for pain Celecoxib (Celecoxib) 100 Mg Capsule 1 CAP PO BID PRN for pain Doxepin HCl (Doxepin HCl) 25 Mg Capsule 125 MG PO HS for 30 Days, #30 CAP 0 Refills Gabapentin (Gabapentin) 600 Mg Tablet 1 TAB PO BID@0800,1200 Ibuprofen (Ibuprofen) 800 Mg Tablet 1 TAB PO Q8H PRN for pain Oxybutynin Chloride (Oxybutynin Chloride) 5 Mg Tablet 2 TAB PO HS Potassium Chloride (K-Dur) 10 Meq Tab.prt.sr 1 TAB PO DAILY Semaglutide (Wegovy) 0.25 Mg/0.5 Ml Pen.injctr 1.7 MG SQ Q7D Simvastatin (Simvastatin) 40 Mg Tablet 1 TAB PO HS Discontinued Medications: Lisinopril (Lisinopril) 10 Mg Tablet 2 TAB PO DAILY Discharge Summary: HPI at the time of admission per admitting physician 64-year-old female past medical history of hypertension, osteoarthritis, hy pokalemia, chronic back pain has been admitted in the hospital after she underwent right total knee arthroplasty today by Dr. Bailon for severe degenerative joint disease of the right knee. The patient successfully underwent the right total knee arthroplasty without any complications. Reported that she did not take her blood pressure medications prior to the surgery today. She also reports having history of chronic pain in her back and peripheral neuropathy but states that her pain is currently well-controlled with the pain medication she has been receiving. She is resting comfortably in her bed and denies any headaches, nausea or vomiting, chest pain, palpitations, abdominal pain, diarrhea or constipation. Course in the hospital Admitted for right total knee arthroplasty for severe degenerative joint disease of the right knee. Underwent surgery by Dr. Bailon. No immediate postop complications and patient was tolerated the surgery well. Patient received perioperative antibiotic coverage of IV cefazolin and vancomycin. Patient is on adductor canal pain pump and as needed Dilaudid IV. Received lactated ringer for hydration and maintenance. Physical therapy cleared for home discharge she got good support the home, her . He is hypertension is treated with the lisinopril 20 mg and we reduced the dose to 10 mg because blood pressures were soft. LDL is 50 and A1c is 50 and we continued simvastatin 40 mg. Received gabapentin, doxepin for chronic back pain and peripheral neuropathy. We prescribed Garretson 10 p.r.n. received SCDs and Lovenox for DVT prophylaxis, received famotidine GI prophylaxis. We held the Lovenox dose while discharging as the patient's hemoglobin dropped from 13.4-8.7. We recommended for follow up with PCP with a CBC, CMP in one week and to decide upon the anticoagulation. Examination time of discharge Vital Signs Date Time Temp Pulse Resp B/P (MAP) Pulse Ox O2 Delivery O2 Flow Rate FiO2 09/28/24 10:00 98.0 90 16 104/56 (72) 95 Room Air 09/26/24 14:00 2.0 General: General: Awake and Alert, no acute distress. HEENT: Conjunctiva pink, Sclera clear, Mucus Membranes moist. Neck: Supple without masses and tenderness. Resp: Unlabored. Lungs clear to auscultation bilaterally. Heart: Regular Rate and rhythm, normal S1 and S2 without murmur, rub or gallop. Abdomen: Soft and non tender no organomegaly Extremities: Right knee covered with a surgical dressing. The surgical dressing is present. No the active bleeding at the moment. Bilateral SCDs present. Skin: Warm and Dry. Neurology: No focal motor or sensory deficits. Laboratory Tests Test 09/27/24 06:04 09/28/24 05:49 White Blood Count 7.7 X10'3 9.4 X10'3 Red Blood Count 3.79 X10'6 3.18 X10'6 Hemoglobin 10.3 g/dl 8.7 g/dl Hematocrit 31.9 % 26.8 % Mean Corpuscular Volume 84.0 FL 84.3 FL Mean Corpuscular Hemoglobin 27.2 PG 27.4 PG Mean Corpuscular Hemoglobin Concent 32.4 g/dL 32.5 g/dL Red Cell Distribution Width 15.8 % 16.1 % Platelet Count 185 X10'3 155 X10'3 Mean Platelet Volume 7.6 FL 7.3 FL Neutrophils (%) (Auto) 69.3 % 63.8 % Lymphocytes (%) (Auto) 19.6 % 24.7 % Monocytes (%) (Auto) 10.9 % 10.4 % Eosinophils (%) (Auto) 0 % 0.6 % Basophils (%) (Auto) 0.2 % 0.5 % Neutrophils # (Auto) 5.4 X10'3 6.0 X10'3 Lymphocytes # (Auto) 1.5 X10'3 2.3 X10'3 Monocytes # (Auto) 0.8 X10'3 1.0 X10'3 Eosinophils # (Auto) 0.0 X10'3 0.1 X10'3 Basophils # (Auto) 0.0 X10'3 0.0 X10'3 CBC Comment Sodium Level 139 MMOL/L 141 MMOL/L Potassium Level 3.9 MMOL/L 4.2 MMOL/L Chloride Level 106 MMOL/L 111 MMOL/L Carbon Dioxide Level 25.4 MMOL/L 24.8 MMOL/L Anion Gap 8 5 Blood Urea Nitrogen 9 MG/DL 14 MG/DL Creatinine 0.89 MG/DL 0.93 MG/DL Estimated GFR/1.73 m2 78 ML/MIN 74 ML/MIN BUN/Creatinine Ratio 10.1 15.1 Glucose Level 96 MG/DL 88 MG/DL Hemoglobin A1c 5.3 % Calcium Level 9.3 MG/DL 9.1 MG/DL Total Bilirubin 0.5 MG/DL 0.4 MG/DL Aspartate Amino Transf (AST/SGOT) 18 U/L 12 U/L Alanine Aminotransferase (ALT/SGPT) 19 U/L 17 U/L Alkaline Phosphatase 100 IU/L 88 IU/L Total Protein 6.4 G/DL 5.7 G/DL Albumin 3.0 G/DL 2.6 G/DL Globulin 3.4 G/DL 3.1 G/DL Albumin/Globulin Ratio 0.9 0.8 Triglycerides Level 60 MG/DL Cholesterol Level 134 MG/DL LDL Cholesterol 50 MG/DL HDL Cholesterol 67 MG/DL Cholesterol/HDL Ratio 2.0 Chemistry Comments Discharge advice fup with pcp in cbc,cmp in 1 week ( in view of postop hb drop) hold anticoaugulants for significant drop in HBy by almost 2 points. need to check cbc in 1 week & fup with pcp to decide upon anticougalants.& watch for b leeeding manifestations. fup with . continue lisinopril 10mg po daily(hold for low blood pressures of less thgan 110/70) call 911 or visit er if emergency *Problems/Diagnosis: (1) Degenerative joint disease (2) Status post total right knee replacement (3) Hypertension (4) Hyperlipidemia (5) Chronic back pain (6) Peripheral neuropathy (7) Obesity Total Time Spent on D/C: > 30 Minutes Addendum ac bl loss anemia 2 to surgery; hold dvt ppx for now till hemoglobin levels off Date of Service: September 28, 2024 Billing Provider: AIRAM TESFAYE MD Common Visit Codes: 95445-FZA/OBS DISCH DAY >30min DYAN CASTAÑEDA, IRINA September 28, 2024 18:14 AIRAM TESFAYE MD September 28, 2024 19:18
== END 2024-09-28 14:35 | disposition home or self-care (01) | DRG 326 ==
LOC: PAS IN 06:34 → ORTHO 4S 14:01
PROVIDERS: ADMIT Orthopaedic Surgery; ATTEND Orthopaedic Surgery
PROC: 0SRC0J9 Replacement of Right Knee Joint with Synthetic Substitute, Cemented, Open Approach (ICD-10-PCS; principal; 2024-09-26 08:25)
DX: M17.11 Unilateral primary osteoarthritis, right knee (principal); D62 Acute posthemorrhagic anemia; E66.9 Obesity, unspecified; E78.5 Hyperlipidemia, unspecified; G62.9 Polyneuropathy, unspecified; G89.29 Other chronic pain; M54.9 Dorsalgia, unspecified; I10 Essential (primary) hypertension; Z79.899 Other long term (current) drug therapy; Z68.37 Body mass index [BMI] 37.0-37.9, adult
CPT/HCPCS: 36415; 73560; 80053; 80061; 82948; 83036; 85025; 87081; 97110; 97116; 97161; 97530; A4215; A4615; A4618; A6253; A6258; A6449; A6454; A6455; A7000; C1713; C1776; C9250; G0378; J0131; J0690; J1100; J1171; J1650; J2003; J2250; J2270; J2405; J2795; J3010; J3370; J3372; J3480; J3490; J7120

== ENCOUNTER 2025-01-22 15:52 | Outpatient (CLI) | payer MEDICAID ==
[~2025-01-22 15:52] MED LIST changes: -vancomycin 1,000mg inj ONE
--- NOTE | 2025-01-22 17:19 | RADIOLOGY REPORT ---
EXAM: CT CT LOWER EXTREMITY INDICATION: PRIMARY OSTEOARTHRITIS, LEFT KNEE TECHNIQUE: Axial images of left lower extremity have been obtained along with coronal and sagittal reformatted images. All CT scans at this facility use dose modulation, iterative reconstruction, and/or weight based dosing when appropriate to reduce radiation dose to as low as reasonably achievable. COMPARISON: None FINDINGS: BONES: No CT evidence of an acute fracture or aggressive osseous lesion. severe joint space loss with a fwrl-xb-yaub contact of the patellofemoral compartment. Lateral patellar tilt. MUSCLES: No abnormal attenuation. JOINT SPACES: Small left knee joint effusion. Large Hernandez's cyst with layering intra-articular bodies. Hernandez's cyst measures up to 3.9 cm with slight marginal thickening. Severe lateral weight-bearing compartment joint space loss with hyqa-[id number] contact TENDONS/LIGAMENTS: Intact. OTHER: None. IMPRESSION: 1. Severe lateral weight-bearing compartment joint space loss with [id number]-[id number] contact. 2. Severe joint space loss with cjgt-zg-fyoz contact of the patellofemoral compartment. 3. Small left knee joint effusion. 4. Large Bakers cyst with layering intra-articular bodies.
== END 2025-01-22 23:59 | disposition home or self-care (01) ==
LOC: RAD 15:52
PROVIDERS: ATTEND Orthopaedic Surgery
DX: M17.12 Unilateral primary osteoarthritis, left knee (principal); M25.462 Effusion, left knee; M71.22 Synovial cyst of popliteal space [Baker], left knee
CPT/HCPCS: 73700

== ENCOUNTER 2025-02-27 08:30 | Inpatient (IN) | payer MEDICAID ==
[2025-02-18 14:56] LABS: CREATININE 0.89 MG/DL (0.40-0.90); PRE OP ALT 18 U/L (30-65); PRE OP ANION GAP 3 (8-16); PRE OP AST 12 U/L (10-37); PRE OP BILIRUB, TOTAL 0.2 MG/DL (0.0-1.0); PRE OP GLUCOSE 95 MG/DL (70-104); PRE OP POTASSIUM 4.4 MMOL/L (3.4-5.1); PRE OP SODIUM 140 MMOL/L (135-145); TOTAL CARBON DIOXIDE 31.3 MMOL/L (24-32); eGFR 78 ML/MIN
[2025-02-18 15:02] LABS: MEAN PLATELET VOLUME 7.1 FL (7.4-10.4); PRE OP HEMATOCRIT 38.1 % (35.0-45.0); PRE OP HEMOGLOBIN 12.3 g/dL (12.0-16.0); PRE OP PLATELET COUNT 250 X10'3 (140-440); PRE OP WHITE BLOOD COUNT 5.1 10'3 (4.8-10.8); RED CELL DISTRIBUTION WIDTH 16.7 % (11.5-14.5)
[2025-02-27] VITALS (16 sets, daily range): BP systolic 127–167; BP diastolic 67–100; PULSE 68–88; RESP 12–19; TEMP 97.2–98.6; O2SAT 97–100
[~2025-02-27] VITALS: Ht 175.3 cm; Wt 113.4 kg
[~2025-02-27 08:30] MED LIST changes: -ACET-2615 PO; +BACL10TA2 PO; -BACL20TA4 PO; +ERGO125018 PO; -IBUP-1986 PO; -OXYB5TAB21 PO; +tetracaine 1% (10mg/ml) pres. free inj. ONE
[2025-02-27] MEDS: ceFAZolin 2gm/dext,iso 50mL 50 ML IV ONE (11:09)
[2025-02-27] MEDS: tranexamic acid 1gm/0.7% sal. 100 ML IV ONE (11:09)
[2025-02-27] MEDS: ringers solution, lacted 1,000 ML IV SCH ×2 (11:10→13:45)
[2025-02-27] MEDS: VANCOMYCIN/WATER FOR INJ (PEG) 1.5GM/300 ML IVPB IV ONE (11:10)
[2025-02-27] MEDS ORDERED: vancomycin 1,000mg inj ONE (12:09)
[2025-02-27] MEDS ORDERED: propofol 10mg/ml 20ml vial IV ONE (12:45)
[2025-02-27] MEDS ORDERED: LIDOcaine 2% (20mg/ml) 5ml vial ONE (12:45)
[2025-02-27] MEDS ORDERED: MIDAZolam 1mg/ml 10ml vial ONE (12:54)
[2025-02-27] MEDS ORDERED: fentaNYL/PF 50MCG/1 ML 2ML syringe ONE (12:54)
[2025-02-27] MEDS ORDERED: hydrALAZINE 20mg/ml inj. IV PRN (13:45)
[2025-02-27] MEDS ORDERED: ondansetron/PF 4mg/2ml inj IV PRN ×2 (13:45→16:15)
[2025-02-27] MEDS ORDERED: fentaNYL/PF 50MCG/1 ML 2ML syringe IV PRN (13:45)
[2025-02-27] MEDS ORDERED: labetalol 20mg/4ml (5mg/ml) syringe IV PRN (13:45)
[2025-02-27] MEDS ORDERED: ROPIVAcaine 0.2% (10 MG/5 ML) BOLUS INJECTION ADDCANAL PRN (13:45)
[2025-02-27] MEDS ORDERED: morphine 4 MG/ML inj SYRINge IV PRN (13:45)
--- NOTE | 2025-02-27 14:04 | ANESTHESIA RECORDS ---
Nerve Block Providers to CC CC: RODOLFO BAILON MD ~ Diagnosis: Nerve Block requested by: RODOLFO BAILON MD Neuraxial/Peripheral Nerve Block requested for Post-operative analgesia by Physician above DIAGNOSIS: Post-operative pain. (Body Area) Shoulder: [ ] Arm: [ ] Hand: [ ] Hip: [ ] Knee: [ left ] Ankle: [ ] Foot: [ ] Leg: [ ] Abdomen: [ ] Other: [ ] Post-operative pain expected to be/is inadequately managed by oral or IV medicines. Regional anesthetic expected to facilitate rehabilitation and/or discharge from facility. Other:[ _] Procedure Performed: Femoral / Saphenous: Left Other: IPACK block Time out Done?: Yes Time of Time out: 12:54 Procedure Details: PROCEDURE DETAILS: Risks, benefits and alternatives explained Informed consent obtained, and patient wishes to proceed Conscious sedation with indicated monitors Patient positioned, pertinent anatomy defined, sterile technique used Needle used: [ ] 3 1/8 inch Stimuplex Ultra 22ga [ ] 4 inch Stimuplex Ultra 20ga [X ] 6 inch Stimuplex Ultra 20ga [X ] 6 inch, Quikbloc over the needle catheter set 20ga [ ] 4 inch Quikbloc over the needle catheter set 20ga [ ]Other: [ ] Loss of twitch @ [ ]mA [X ] Single Injection IPACK block [X ] Catheter for Adductor canal block Ultrasound Guidance Used: [X ] Yes [ ] No Attempts:[__1,1 ] Medicines injected: [ ]Clonidine Amt:[ ] [ ]Dexamethasone Amt:[ ] [ X ]Ropivacaine Amt:[_0.5% 45 c.c ] [ ]Bupivacaine Amt:[ ] [ ]Lidocaine Amt:[ ] [ ]Exparel 1.33%:[ ] [ ]Epinephrine Amt[ ] [ ]Other: [ ] Intermittent aspiration during local anesthetic administration No symptoms of intraneural or intravenous injection Patient tolerated procedure well Comments Left IPACK Block: Left posterior thigh is examined at the knee level. Posterior knee capsule, Popliteal vesses are idnetified./ Needle is placed between those 2 land chambers. 15c,c local infiltrated. spread is noted. Ultra sound image is captured,documented. Left Adductor canal catheter: Left mid medial thigh is examined with ultrasound and Adductor canal, and vessels in the canal are noted. Catheter over needle is placed inthe canal and after negative aspirations,25 c.c local mix is injected, Spread is noted. Needle is removed, catheter is secured. Ultrasound image is captured and documented. sterile dressing applied. On q Pump ordered for post operative infusion. ELLEN LEVY MD Feb 27, 2025 14:04
[2025-02-27] MEDS ORDERED: MIDAZolam 1 MG/ML 5ML VIAL ONE ×2 (14:42→15:28)
[2025-02-27] MEDS ORDERED: ROPIVAcaine 0.5% (5mg/ml) 30ml vial ONE ×2 (15:28)
[2025-02-27] MEDS ORDERED: bisacodyl 10mg suppository rectal RC PRN (16:15)
[2025-02-27] MEDS ORDERED: oxyCODONE IR 5mg (immed. release) tablet PO PRN (16:15)
[2025-02-27] MEDS ORDERED: HYDROmorphone inj. 0.5 MG/0.5 ML DISP.SYRIN IV PRN (16:15)
[2025-02-27] MEDS ORDERED: magnesium hydroxide 30ml (MOM) UD suspension PO PRN (16:15)
[2025-02-27] MEDS ORDERED: PCA WASTE DOCUMENTATION 1 MG ML MC SCH (16:15)
--- NOTE | 2025-02-27 16:33 | OPERATIVE REPORT ---
Operative Report Providers to ~ Date of Procedure: Feb 27, 2025 Pre-Operative Diagnosis: Severe severe degenerative joint disease left knee Post-Operative Diagnosis SAME as PRE-Op Procedure Performed Left total knee arthroplasty Press-Fit patella cemented Surgeon: Rodolfo Bailon MD [employer] Concierge Osman Sanches MD Anesthesiologist: Wilton Valera Type of Anesthesia: Other (Adductor canal block with IPAP block), Spinal Findings: Severe grade 4 degenerative changes with extensive osteophytes mild valgus deformity Complications None Prosthetics\Implants used: To pew [id number] knee system size eight left cement less cruciate retaining femoral prosthesis. Size seven tibial base plate Press-Fit fixed bearing size 8 mm medial congruent fixed medial stabilized polyethylene insert. Size 41 mm medial stabilize patella anatomic cemented with PMMA. Estimated Blood Loss: 200 mL Specimen Removed: Degenerative bone, meniscal tissue, cruciate tissue. Extensive osteophytes multiple loose bodies Description of Procedure: Patient was taken to the operating room after I had obtained informed consent and signed her left leg. She is well aware of the indications risks benefits potential limitations and potential complications of the surgery having successfully undergone a right total knee arthroplasty I answered all her questions and she was now given intravenous antibiotics prophylactically per protocol once in the operating room she was placed in a supine position in the OR table after been given a spinal anesthetic. Her right leg was placed in a SCD device her left leg was placed in a well-padded upper thigh tourniquet and prepped and draped in usual sterile orthopaedic fashion. Surgical time-out was taken. Esmarch was used for exsanguination and tourniquet was insufflated tourniquet time was 79 minutes total IM P leg vazquez was used. Betadine protect his skin dressing was used. Anterior incision measuring approximately 9 in was made a medial parapatellar approach was accomplished with sharp dissection hemostasis achieved with electrocautery throughout the case. Extension erosive changes were seen of the lateral patellar facet of the reaming osteophytes this was resected the articular surfaces were resected using a freehand technique removing his minimal amount of bone as possible. Who was sized to a 41 mm in drilled using the clamp drill guide for a cemented implant. Protect his skin was placed over the patella and subluxed laterally to expose the distal femur extensive osteophytes were resected around the distal femur and medullary canal was drilled with the medullary intramedullary dipak used for alignment purposes distal femoral cut was made using an additional 2 mm of bone because she had a slight flexion contracture of the beginning of the case. Tibial was now exposed releasing the cruciate ligaments and doing meniscectomies retractors were placed posteriorly as well as medially and laterally to expose the proximal tibial plateau. Medullary canal was established with a drill medullary dipak guide dipak was used removing approximately 8 mm of bone from the medial side flexion-extension gaps were equal at 8 mm each. Elected to use Press-Fit implants as her bone was excellent quality for this patient at 64 years old she qualifies for Press-Fit in implants probably. Tibial implant was put into place after the keel was established drill holes were placed excellent interference and fixation of the tibial implant was a size seven femoral component is placed after the one one cutting block as well as a notch cut was made with the implant excellent stability of the parent's home in patella tracked centrally the trial component was placed prior to cementing the patella. Copious antibiotic irrigation of the total of 3 L of antibiotic impregnated normal saline and 1 L of antiseptic solution was used throughout the case. Hemostasis achieved again and checked with electrocautery after the tourniquet was released. Definitive 10 mm polyethylene insert was impacted into place and he was taken through a range of motion with the patella in place after cementation was completed. After irrigation 10 cc of thrombin spray was used for support hemostasis 1 g of vancomycin powder was placed in the knee and the closure was begun. Closure was with 2. Ethibond interrupted for the medial and vastus medialis obliquus approach. And he was taken through a range of motion in the patella again tracked centrally was stable. Full range of motion was achieved. Subcuticular closure was accomplished with 2-0 Vicryl the skin was closed with skin yissel in supported with a silk dressing and island dressing. Good distal pulses and capillary refill were had returned after the tourniquet had been released. The patient was now handed over to the anesthesiologist to perform his regional anesthetic and then transferred to the recovery room in stable condition there were no apparent perioperative complications Counts repoted as correct: Yes RODOLFO BAILON MD Feb 27, 2025 16:33
[2025-02-27] MEDS: ROPIVAcaine 0.2%/PF PUMP/bolus 545 ML ADDCANAL SCH (16:48)
[2025-02-27] MEDS: potassium Cl 20mEq in NS 1,000 ML IV SCH (17:41)
[2025-02-27] MEDS: TRANEXAMIC ACID IV ONE (21:21)
[2025-02-27] MEDS: NORMAL SALINE IV ONE (21:21)
[2025-02-27] MEDS: oxyCODONE IR 5mg (immed. release) tablet PO PRN (21:23)
[2025-02-27] MEDS: vancomycin/NS 1 GM ADD-VANTAGE 250 ML IV SCH (21:23)
[2025-02-27] MEDS ORDERED: SEMAGLUTIDE SQ SCH (22:00)
[2025-02-27] MEDS: ceFAZolin/D5W- 1GM premix 50 ML IV SCH (23:37)
[2025-02-28 02:00] VITALS: BP 156/76; PULSE 80; RESP 16; TEMP 98.6; O2SAT 96
[2025-02-28 08:00] VITALS: BP 120/65; PULSE 95; RESP 16; TEMP 98.1; O2SAT 100
[2025-02-28 10:00] VITALS: BP 117/67; PULSE 92; RESP 16; TEMP 98.3; O2SAT 99
--- NOTE | 2025-02-28 11:00 | CONSULTATION REPORT ---
Consult Providers to CC ~ History of Present Illness Reason for Admit\Complaint: Severe severe degenerative joint disease left knee s/p left TKA History of Present Illness Stacey To is a 64-year-old female with a past medical history of hypertension and osteoarthritis of bilateral knees who underwent left total knee arthroplasty. Patient denies prior WI/CAD, CVA, cardiac arrhythmia, DVT/PE, or GIB. Patient denies chest pain, palpitations, shortness of breath, abdominal pain, n/v/d, fever, chills, dysuria. Patient is admitted for supportive care and physical therapy postop. Allergies: Coded Allergies: codeine (Unverified Allergy, Intermediate, NAUSEA/VOMITING, SWELLING., 10/09/13) Home Medications Home Medications Active Reported Vitamin D2 (Ergocalciferol (Vitamin D2)) 1,250 Mcg (05519 Unit) Capsule 1 Cap PO Q28D Baclofen 10 Mg Tablet 2 Tab PO BID PRN Lisinopril 10 Mg Tablet 10 Mg PO DAILY Doxepin HCl 25 Mg Capsule 125 Mg PO HS 30 Days Gabapentin 600 Mg Tablet 900 Mg PO HS PRN Gabapentin 600 Mg Tablet 1 Tab PO BID@0800,1200 PRN Wegovy (Semaglutide) 0.25 Mg/0.5 Ml Pen.injctr 1.7 Mg SQ Q7D Simvastatin 40 Mg Tablet 1 Tab PO HS K-Dur (Potassium Chloride) 10 Meq Tab.prt.sr 1 Tab PO DAILY Celecoxib 100 Mg Capsule 1 Cap PO BID PRN Past Medical History Past Medical History Hypertension Osteoarthritis Past Surgical History Surgical History Comment Lumbar fusion Past Social History Social History Comment Alcohol: Denies Tobacco: Former smoker, quit 2 years ago, 15 pack year history Illicit drug use: Denies Living situation: Lives at home with spouse ROS ROS Other than positives in HPI, all 14 review of systems are negative Exam Vitals: Vital Signs Date Time Temp Pulse Resp B/P (MAP) Pulse Ox O2 Delivery O2 Flow Rate FiO2 02/28/25 09:13 95 02/28/25 05:33 16 02/28/25 02:00 98.6 156/76 (102) 96 Room Air 02/27/25 17:00 0.0 General: Generalized weakness, A&Ox 3, NAD HEENT: Normocephalic, PERRLA Neck: Supple, trachea midline, no JVD Chest: Clear to auscultation bilaterally Cardiovascular: RRR, S1&S2 Abdomen: Soft and nontender Extremities: No cyanosis/clubbing/or edema Central Nervous System: CN II-XII intact, no focal deficits Musculoskeletal: No paraspinal muscle tenderness, no muscle spasm Skin: Incisions left medial lower leg closed, mild-mod draining blood Additional Plan Assessment & Plan Severe severe degenerative joint disease left knee s/p left TKA (Dr. Epstein) Osteoarthritis Anemia, normocytic Hypertension -Hgb 9.6-9.8g/dL, supportive care, compress DVT/VTE prophylaxis: SCDs, aspirin Code status: Full code I spent a total of 35 minutes discussing Advanced Care Planning measures with the patient. Advance care planning: Discussed with patient the importance of advance care planning in case of emergent situation. We discussed various resuscitative measures/ ACP with the patient at the time of admission. Patient voiced understanding and patient has decided on a full code status. Date of Service: Feb 28, 2025 Billing Provider: DANIAL CROW Common Visit Codes: [id number] INP/OBS CARE (HIGH) Secondary Visit Codes: [id number] CARE PLAN 30 MINUTES DANIAL CROW Feb 28, 2025 11:00
[2025-02-28] MEDS ORDERED: hydrALAZINE 20mg/ml inj. IV PRN (11:20)
[2025-02-28 11:49] LABS: MEAN PLATELET VOLUME 7.2 FL (7.4-10.4); RED CELL DISTRIBUTION WIDTH 16.7 % (11.5-14.5)
[2025-02-28 11:54] LABS: CREATININE 0.87 MG/DL (0.40-0.90); TOTAL CARBON DIOXIDE 28.1 MMOL/L (24-32); eCRCL 69 ML/MIN; eGFR 80 ML/MIN
[2025-02-28] MEDS: normal saline 1000ml 1,000 ML IV SCH (14:47)
[2025-02-28 15:13] LABS: MEAN PLATELET VOLUME 6.9 FL (7.4-10.4); RED CELL DISTRIBUTION WIDTH 16.4 % (11.5-14.5)
[2025-02-28 18:00] VITALS: BP 141/79; PULSE 98; RESP 16; TEMP 98.2; O2SAT 96
[2025-02-28 20:00] VITALS: RESP 16; O2SAT 96
[2025-02-28 22:00] VITALS: BP 137/53; PULSE 104; RESP 14; TEMP 98.2; O2SAT 95
[2025-03-01 06:00] VITALS: BP 125/65; PULSE 91; RESP 18; TEMP 97.7; O2SAT 98
[2025-03-01 07:00] LABS: MEAN PLATELET VOLUME 7.2 FL (7.4-10.4); RED CELL DISTRIBUTION WIDTH 16.3 % (11.5-14.5)
[2025-03-01 07:17] LABS: CREATININE 0.94 MG/DL (0.40-0.90); TOTAL CARBON DIOXIDE 25.8 MMOL/L (24-32); eCRCL 64 ML/MIN; eGFR 73 ML/MIN
[2025-03-01] MEDS ORDERED: ASPI81TA52 PO (07:39)
[2025-03-01] MEDS ORDERED: PER5325T PO (07:40)
--- NOTE | 2025-03-01 09:49 | RADIOLOGY REPORT ---
EXAM: DI KNEE LIMITED (AP/LAT) CLINICAL INDICATION: Postop LEFT TECHNIQUE: DI KNEE LIMITED (AP/LAT) Comparison: CT left knee dated 01/22/2025. FINDINGS/IMPRESSION: There is a total knee replacement. The components are well aligned. No periprosthetic fracture. Soft tissue swelling and emphysema is present compatible with recent surgery. Skin closure yissel overlie the anterior knee.
[2025-03-01 10:00] VITALS: BP 149/81; PULSE 104; RESP 15; TEMP 97.8; O2SAT 99
--- NOTE | 2025-03-01 11:28 | DISCHARGE SUMMARY ---
Discharge Summary Providers to CC ~ Discharge Summary Admission Diagnosis: Severe severe degenerative joint disease left knee Hospital Course DATE OF ADMISSION: 02/27/25 DATE OF DISCHARGE: 03/01/25 Discharge Diagnosis\Comment: Severe severe degenerative joint disease left knee s/p left TKA (Dr. Epstein) Osteoarthritis Anemia, normocytic Blood loss anemia Hypertension Operations\Procedures: Left TKA Consultants: Orthopedic surgeon Vargas Jimenez Complications: None Condition on DC: Stable New Medications: Aspirin (Aspirin EC) 81 Mg Tablet.dr 1 TAB PO DAILY for 30 Days, #30 TAB Oxycodone Hcl/Acetaminophen 5/325 MG* (Percocet 5/325 MG*) 5 Mg/325 Mg Tablet 1 TAB PO Q6H PRN for moderate or severe pain for 5 Days, #20 TAB Continued Medications: Baclofen (Baclofen) 10 Mg Tablet 2 TAB PO BID PRN for muscle spasm Doxepin HCl (Doxepin HCl) 25 Mg Capsule 125 MG PO HS for 30 Days, #30 CAP 0 Refills Ergocalciferol (Vitamin D2) (Vitamin D2) 1,250 Mcg (12310 Unit) Capsule 1 CAP PO Q28D Gabapentin (Gabapentin) 600 Mg Tablet 1 TAB PO BID@0800,1200 PRN for pain Gabapentin (Gabapentin) 600 Mg Tablet 900 MG PO HS PRN for pain Lisinopril (Lisinopril) 10 Mg Tablet 10 MG PO DAILY, #30 TAB Semaglutide (Wegovy) 0.25 Mg/0.5 Ml Pen.injctr 1.7 MG SQ Q7D Simvastatin (Simvastatin) 40 Mg Tablet 1 TAB PO HS Discontinued Medications: Celecoxib (Celecoxib) 100 Mg Capsule 1 CAP PO BID PRN for pain Potassium Chloride (K-Dur) 10 Meq Tab.prt.sr 1 TAB PO DAILY Discharge Summary: Hospital Course Stacey To is a 64-year-old female with a past medical history of hypertension and osteoarthritis of bilateral knees who underwent left total knee arthroplasty. Patient denies prior HI/CAD, CVA, cardiac arrhythmia, DVT/PE, or GIB. Patient denies chest pain, palpitations, shortness of breath, abdominal pain, n/v/d, fever, chills, dysuria. Patient was treated with supportive care. Patient had blood loss anemia postop. Hemostasis at the surgical incision site was achieved with compression. Patient did not experience further complications throughout the entire hospital stay and remained clinically and hemodynamically stable. Patient was seen and examined on the day of discharge. On day of discharge, vss and labs notable for stable H/H. All labs, diagnostic workups, discharge plan discussed with patient in details during visit before discharge. All questions and concerns answered to the best of my professional knowledge. Patient is to be discharged with HH and to follow-up with PCP and Dr. Epstein within 2 weeks. Physical Exam General: Generalized weakness, A&Ox 3, NAD HEENT: Normocephalic, PERRLA Neck: Supple, trachea midline, no JVD Chest: Clear to auscultation bilaterally Cardiovascular: RRR, S1&S2 GI: Soft and nontender Extremities: No cyanosis/clubbing/or edema [employer]: CN II-XII intact, no focal deficits Musculoskeletal: No paraspinal muscle tenderness, no muscle spasm Skin: Surgical incision closed, minimal bleed, no s/s of infection *Problems/Diagnosis: (1) S/P total knee arthroplasty Status: Acute Total Time Spent on D/C: > 30 Minutes Date of Service: Mar 01, 2025 Billing Provider: DANIAL CROW Common Visit Codes: 95341-GYQ/OBS DISCH DAY >30min DANIAL CROW Mar 01, 2025 11:28
[2025-03-27] MEDS ORDERED: ergocalciferol (vit D2) capsule 50,000 UNITS (1,250mcg) CAPSULE PO SCH (08:00)
== END 2025-03-01 13:00 | disposition home or self-care (01) | DRG 326 ==
LOC: PAS IN 10:10 → ORTHO 4S 17:07
PROVIDERS: ADMIT Orthopaedic Surgery; ATTEND Orthopaedic Surgery
PROC: 0JH80VZ Insertion of Infusion Pump into Abdomen Subcutaneous Tissue and Fascia, Open Approach (ICD-10-PCS; 2025-02-27)
PROC: 0SRD0J9 Replacement of Left Knee Joint with Synthetic Substitute, Cemented, Open Approach (ICD-10-PCS; principal; 2025-02-27 12:48)
DX: M17.12 Unilateral primary osteoarthritis, left knee (principal); D62 Acute posthemorrhagic anemia; I10 Essential (primary) hypertension; Z87.891 Personal history of nicotine dependence
CPT/HCPCS: 36415; 73560; 80048; 80053; 82948; 85025; 85027; 87081; 97110; 97116; 97161; 97530; A4215; A6253; A6258; A6446; A6449; A6454; A7000; C1713; C1758; C1776; C9250; G0378; J0690; J1171; J1200; J2003; J2250; J2704; J2795; J3010; J3373; J3375; J3480; J3490; J7030; J7120; Q0163